=== PATIENT | male | born 1950 | race Caucasian/White ===

== ENCOUNTER 2025-01-11 06:55 | Outpatient (CLI) | payer MEDICARE, SELFPAY ==
[2025-01-11 07:45] LABS: Add Urine Microscopic? NO; Appearance Urine Clear (Clear); Glucose Urine UA Negative (Negative); Leukocyte Esterase Ur Negative LEU/UL (Negative); Nitrate Urine Negative (Negative); Specific Grav Ur 1.009 (1.001-1.035)
[2025-01-11 07:54] LABS: Alanine Aminotransferase 20 U/L (6-50); Albumin Level 4.2 g/dL (3.5-5.1); Alkaline Phosphatase 98 U/L (38-126); Anion Gap 7 mmol/L (4-12); Aspartate Amino Transferase 21 U/L (17-59); Bilirubin,Total 0.4 mg/dL (0.2-1.3); Blood Urea Nitrogen 18 mg/dL (9-20); Calcium 9.1 mg/dL (8.4-10.2); Carbon Dioxide 26 mmol/L (22-30); Chloride 105 mmol/L (98-107); Estimated Glomerular Filt Rate > 60; Glucose 121 mg/dL (65-110); Potassium 4.1 mmol/L (3.4-5.0); Sodium 138 mmol/L (137-145); Total Protein 7.4 g/dL (6.3-8.2)
[2025-01-11 08:36] LABS: Hematocrit 43.7 % (42.0-52.0); Hemoglobin 14.5 g/dL (14.0-18.0); Immature Granulocyte Percent A 0.3 % (0-0.5); Lymphocytes Absolute Auto 1.53 K/mm3 (0.9-3.2); Mean Corpuscular HGB Conc 33.2 g/dl (32-36); Mean Corpuscular Hemoglobin 31.9 pg (26-34); Mean Corpuscular Volume 96.0 fl (80-100); Nucleated Red Blood Cells Absolute Auto 0.000 K/mm3 (0.0-0.012); Nucleated Red Blood Cells Perc 0.0 % (0.0-0.2); Platelet Count Result 227 k/mm3 (150-375); Red Blood Count 4.55 M/mm3 (4.6-6.20); White Blood Count 7.6 K/mm3 (4.5-10.0)
== END 2025-01-11 06:56 | disposition home or self-care (01) ==
PROVIDERS: PCP Family Medicine; Visit Provider Nurse Practitioner
DX: F17.209 Nicotine dependence, unspecified, with unspecified nicotine-induced disorders (principal)
CPT/HCPCS: 36415; 80053; 81003; 85025

== ENCOUNTER 2025-02-11 21:01 | Inpatient (IN) | payer MEDICARE, SELFPAY ==
[2025-02-11] VITALS (26 sets, daily range): BP systolic 88–154; BP diastolic 53–84; PULSE 59–80; RESP 11–23; TEMP 36.7; O2SAT 95–100; BMI 22.2
--- NOTE | ~2025-02-11 | XR_ITS ---
XR chest 1V portable INDICATION:chest pain . REFERENCE: None FINDINGS: A single AP of the chest demonstrates normal heart size. Mild interstitial thickening present bilaterally. No focal consolidation. There is no evidence of pneumothorax or pleural effusion. IMPRESSION: Mild interstitial thickening bilaterally. Reviewed, dictated and finalized at location S. TTING MANAGER
--- NOTE | 2025-02-11 21:03 | ECG_ITS ---
Test Date: 2025-02-11 21:11:45 Measurements Intervals [place] Rate: 62 P: 56 MI: 157 QRS: 47 QRSD: 98 T: 107 QT: 389 QTc: 395 Interpretive Statements SINUS RHYTHM MARKED ST ELEVATION, CONSIDER INFERIOR INJURY [MARKED ST ELEVATION W/O NORMALLY INFLECTED T-WAVE IN II/aVF] ACUTE [place] No previous ECG available for comparison Electronically Signed On 02-11-2025 21:14:39 DIE OPERATOR by Leonardo Pino M.D.
[2025-02-11 21:19] LABS: Hematocrit 46.4 % (42.0-52.0); Hemoglobin 15.4 g/dL (14.0-18.0); Immature Granulocyte Percent A 0.3 % (0-0.5); Lymphocytes Absolute Auto 2.69 K/mm3 (0.9-3.2); Mean Corpuscular HGB Conc 33.2 g/dl (32-36); Mean Corpuscular Hemoglobin 31.7 pg (26-34); Mean Corpuscular Volume 95.5 fl (80-100); Nucleated Red Blood Cells Absolute Auto 0.000 K/mm3 (0.0-0.012); Nucleated Red Blood Cells Perc 0.0 % (0.0-0.2); Platelet Count Result 200 k/mm3 (150-375); Red Blood Count 4.86 M/mm3 (4.6-6.20); White Blood Count 9.6 K/mm3 (4.5-10.0)
--- NOTE | 2025-02-11 21:20 | ED.CHESTPAIN ---
HPI - Chest Pain General Chief Complaint: Chest Pain Stated Complaint: chest pain Time Seen by Provider: 02/11/25 21:15 Source: patient and family Mode of arrival: ambulatory Limitations: no limitations History of Present Illness HPI narrative: patient presents with report of midsternal chest pain beginning this afternoon. He denies any shortness of breath. He did nausea. He states this has never happened before. No history of myocardial infarction stents. Does not see a circulating nurse. pain is nonradiating. Cardiac risk factors HTN: No HLD: no DM: no Obese: no Smoker: yes, 1 PPD Personal history VA/TIA/CVA: No Fam Hx VA in first degree relative <65yo: No Related Data Allergies Allergy/AdvReac Type Severity Reaction Status Date / Time No Known Allergies Allergy Verified 02/11/25 23:36 [facility] Surgical History Surgical History (Updated 02/11/25 @ 22:11 by Padmini Verdin MD) History of appendectomy Social History Social History Smoking packs per day: 1 Smoking cigarettes per day: 20.0 Years smoked: 60 Smoking pack-years: 60.00 Smoking status: Current every day smoker Tobacco type: cigarettes Alcohol intake: never Substance use: never Lack of Transportation: No Lack of Food: Never True Current Housing: I Have Housing Concerned About Future Housing: No Difficulty Paying Gas/Electric Bills: No Difficulty Paying for Meds: No Currently Unemployed: No Education: High School Diploma/GED Difficulty w/ Childcare or Family Care: No Spiritual care concerns: No Exam Narrative: GENERAL: Well-appearing, well-nourished, and in no acute distress. HEAD: Normocephalic, atraumatic. EYES: Non injected, non icteric ENT: Nares clear, no rhinorrhea or epistaxis. Gross auditory acuity intact. NECK: Supple. No meningismus. CHEST: Speaking in full sentences. No respiratory distress. HEART: Regular rate and rhythm. . ABDOMEN: Soft, nondistended. No rigidity or guarding. Not peritoneal EXTREMITIES: Normal range of motion. No lower extremity edema. SKIN: Warm, dry, no rash. NEURO: No focal deficits. Alert and oriented. Answering questions. Following commands. Normal speech without aphasia or dysarthria. PSYCH: Normal mood and affect. Course Vital Signs Vital signs: Vital Signs Pulse Rate 66 02/11/25 21:08 Respiratory Rate 18 02/11/25 21:08 Blood Pressure 148/74 H 02/11/25 21:08 Pulse Oximetry 98 02/11/25 21:08 Temperature 98.3 F 02/12/25 16:00 Pulse Rate 61 02/12/25 16:00 Respiratory Rate 23 H 02/12/25 16:00 Blood Pressure 120/65 02/12/25 16:00 Pulse Oximetry 97 02/12/25 16:00 Oxygen Delivery Room Air 02/12/25 04:00 Fraction of Inspired Oxygen 21 02/12/25 01:19 MDM - Chest Pain MDM Narrative Medical decision making narrative: Patient presents with midsternal Nonradiating chest pain that started this afternoon associated with nausea. Given the appearance of the EKG, I did activate STEMI and discuss immediately with on-call traffic technician Dr. Verdin who concurs with activation. To be given aspirin and heparin and taken to the cardiac catheterization lab. In the ED he is afebrile with VS notable for mild hypertension initially. HEART SCORE History 2 highly suspicious 1 moderately suspicious 0 slightly suspicious History score [address] depression/elevation not due to LBBB, LVH, or digoxin [address] depression but LBBB, LVH, nonspecific repolarization changes 0 normal ECG score 2 Age 2 >/= 65 1 45-64 0 <45 Age score 2 Risk factors (HTN, hypercholesterolemia, DM, obesity with BMI >30, current smoker or cessation </=3mo), positive fam hx with parent or sibling with CVD before age 65, atherosclerotic disease (prior VA, PCI/CABG, CVA/TIA, or peripheral arterial disease) 2 >/= 3 risk factors or history of atherosclerotic dz 1 - 1-2 risk factors 0 no known risk factors Risk factor score 1 (smoking) Initial Troponin 2 >3 times normal limit 1 1-3 times normal limit 0 less than or equal to normal limit Troponin score 2 Total HEART Score 8 Patient had briefly become hypotensive and received IV fluids with improvement. Patient was informed his troponin did result nearly 100x the upper limit of normal. He is reporting that because his is insisting he will take an ambulance home. I re-iterated again that he is having a heart attack and the course and that we do not provide EMS transportation directly home in these circumstances. He has an ALAINA, already receiving fluids. HA1c and lipid panel ordered. HA1c >6%, consistent with a new diagnosis of prediabetes. Taken to the fish hatchery laborer. == Critical Care: 1 or more vital organ systems impaired with a high probability of imminent or life-threatening deterioration in the patient's condition requiring frequent personal assessment and manipulation of the patient's condition. This included time spent evaluating the patient, speaking with EMS pre-hospital personnel and family, reviewing/interpreting laboratory/imaging studies, discussing the case with consultants or admitting teams, retrieving data and reviewing charts, monitoring for decompensation, documenting the visit, and performing bundled procedures exclusive of separately billed procedures. Lab Data Attestation: I reviewed the patient's lab results. Lab results narrative: CBC with mild abnormalities on the differential but otherwise without leukocytosis anemia thrombocytopenia. 02/12/25 03:11 02/12/25 03:11 Labs: Lab Results 02/11/25 02/11/25 Range/Units 21:11 21:12 WBC 9.6 (4.5-10.0) K/mm3 RBC 4.86 (4.6-6.20) M/mm3 Hgb 15.4 (14.0-18.0) g/dL Hct 46.4 (42.0-52.0) % MCV 95.5 (80-100) fl MCH 31.7 (26-34) pg MCHC 33.2 (32-36) g/dl RDW 14.5 (11.5-14.5) % Plt Count 200 (150-375) k/mm3 MPV 9.5 (7.4-10.4) fl Immature Gran % (Auto) 0.3 (0-0.5) % Neut % (Auto) 58.9 (45.5-73.1) % Lymph % (Auto) 28.0 (18.3-44.2) % [place] % (Auto) 10.2 H (2.6-8.5) % Eos % (Auto) 2.0 (0-4.4) % Baso % (Auto) 0.6 (0.2-1.2) % Lymph # (Auto) 2.69 (0.9-3.2) K/mm3 [place] # (Auto) 1.0 H (0.1-0.6) K/mm3 Eos # (Auto) 0.2 (0-0.3) K/mm3 Baso # (Auto) 0.1 (0.0-0.1) K/mm3 Abs Immat Gran (auto) 0.03 (0.00-0.031) K/mm3 Absolute Neuts (auto) 5.7 (1.3-6.7) K/mm3 Absolute Nucleated RBC 0.000 (0.0-0.012) K/mm3 Nucleated RBC % 0.0 (0.0-0.2) % PT 12.7 (11.1-14.7) Seconds INR 1.0 APTT 27.8 (22.3-36.8) Seconds Sodium 136 L (137-145) mmol/L Potassium 3.6 (3.4-5.0) mmol/L Chloride 102 (98-107) mmol/L Carbon Dioxide 25 (22-30) mmol/L Anion Gap 9 (4-12) mmol/L BUN 21 H (9-20) mg/dL Creatinine 1.43 H (0.7-1.3) mg/dL Estim Creat Clear Calc 37 ml/min Estimated GFR 48 L (59 - ) Glucose 129 H (65-110) mg/dL Hemoglobin A1c 6.1 H (<5.7) % Calcium 9.1 (8.4-10.2) mg/dL Total Bilirubin 0.5 (0.2-1.3) mg/dL AST 56 (17-59) U/L ALT 33 (6-50) U/L Alkaline Phosphatase 93 (38-126) U/L Troponin I 3.330 H* (0.000-0.034) ng/mL Total Protein 8.0 (6.3-8.2) g/dL Albumin 4.7 (3.5-5.1) g/dL Triglycerides 171 H (<150) mg/dL Cholesterol 218 H (0-200) mg/dL LDL Cholesterol Direct 119 mg/dL HDL Direct 48 mg/dL Lipase 46 (23-300) U/L ECG Data EKG #1: Attestation: I personally reviewed and interpreted this ECG as follows: ECG completion date: 02/11/25 ECG completion time: 21:11 Prior ECG tracings: not available for review (No prior for comparison) Interpretation: Patient has marked elevation in inferior leads 2 3 and AVF as well as ST depression in V2 with elevation in V3 and V4 as well. Ventricular rate 62 beats per minute. [place] interval 157. QRS 98. QT/QTC 389/394. Good R-wave progression across the precordial leads. No T-wave inversion. Critical Care Time Critical Care Time Critical Care Time: Yes Total Critical Care Time: 35 Discharge Plan Discharge Clinical Impression: ST elevation (STEMI) myocardial infarction, Chest pain, ALAINA (acute kidney injury), Pre-diabetes Patient Disposition: Still a Patient Condition: Serious Time of Disposition: 22:06
[2025-02-11] MEDS: ASPIRIN 81 MG CHEWABLE TABLET 324 MG PO (21:22)
[2025-02-11 21:29] LABS: INR 1.0; Prothrombin Time 12.7 Seconds (11.1-14.7)
[2025-02-11 21:30] LABS: Partial Thromboplastin Time 27.8 Seconds (22.3-36.8)
[2025-02-11] MEDS: HEPARIN SOD/D5W 100 UNITS/ML 25,000 UNITS/250 ML BAG 9 UNITS IV CONT (21:30)
[2025-02-11 21:33] LABS: Alanine Aminotransferase 33 U/L (6-50); Albumin Level 4.7 g/dL (3.5-5.1); Alkaline Phosphatase 93 U/L (38-126); Anion Gap 9 mmol/L (4-12); Aspartate Amino Transferase 56 U/L (17-59); Bilirubin,Total 0.5 mg/dL (0.2-1.3); Blood Urea Nitrogen 21 mg/dL (9-20); Calcium 9.1 mg/dL (8.4-10.2); Carbon Dioxide 25 mmol/L (22-30); Chloride 102 mmol/L (98-107); Estimated CRCL calculation 37 ml/min; Estimated Glomerular Filt Rate 48; Glucose 129 mg/dL (65-110); Lipase 46 U/L (23-300); Potassium 3.6 mmol/L (3.4-5.0); Sodium 136 mmol/L (137-145); Total Protein 8.0 g/dL (6.3-8.2)
[2025-02-11] MEDS: LACTATED RINGERS 1,000 ML 999 ML IV CONT (21:37)
[2025-02-11 21:47] LABS: INR 1.1; Prothrombin Time 14.3 Seconds (11.1-14.7)
[2025-02-11 21:48] LABS: Troponin I 3.330 ng/mL (0.000-0.034)
[2025-02-11 22:01] LABS: Partial Thromboplastin Time > 200.0 Seconds (22.3-36.8)
--- NOTE | 2025-02-11 22:04 | WPDCARDPROC ---
Cardiac Cath Procedure Note Date of procedure:: 02/11/25 Performing physician:: Padmini Verdin MD Date of service 02/11/2025- Indication:: Inferior STEMI Brief clinical history:: 75-year-old patient who is a smoker and started having chest pain today. EKG shows inferior ST elevation. Admits central chest pain associated shortness of breath. Procedure Procedure performed:: 1-Moderate sedation that started at 10:19 p.m. and ended at 11:01 p.m. for total duration 40 minutes using 3mg of Versed and 75mcg fentanyl. The registered nurse was jackie romo 2-Selective left and right coronary angiogram. 3-Left heart catheterization with measurement of LVEDP and measurement of gradient across aortic valve. 4-Right common femoral arterial angiogram. 5-intravascular ultrasound of the right coronary artery. 6-Deployment of drug-eluting stent roz covering proximal and midportion of RCA. Sedation/Medication given:: Moderate sedation. Access site:: Right common femoral artery. Estimated blood loss:: 10cc Procedure note:: After informed consent patient was brought in to landscape and yardwork laborer with the was draped and prepped in usual manner. Moderate sedation was given and the right groin was infiltrated using 1% lidocaine. six [place] sheath was obtained using micropuncture needle and the modified Seldinger technique. Selective right coronary angiogram was done using JR4 guide catheter with the tip of the catheter placed to the right coronary artery. After that coronary lead wire was advanced to distal RCA and balloon angioplasty was done using 2.5 x 15 balloon with 2 inflations. First inflation under nominal pressure for 15 seconds and the 2nd inflation corresponding size 3 mm for 15 seconds. Intravascular ultrasound was used and determine the diameter of RCA about 4 mm. Then deployed a drug-eluting stent roz 4 x 22 covering proximal midportion RCA and a normal pressure for 25 seconds. Selective left coronary angiogram was done using JL4 catheter with the tip of the catheter placed in the left main coronary artery. After that 5 [place] pigtail catheter was advanced across the aortic valve into the left ventricle with measurement of LVEDP and measurement of gradient across aortic valve. LV angiogram was done. Right common femoral arterial angiogram was done. Findings:: 1- left coronary artery is a large artery that divides into large LAD, large circumflex artery. Left main is free of disease. 2- left anterior descending artery is a large artery that runs and wraps around the apex. In the mid segment calcification and 20% lesion. 3- leftcircumflex artery is a large artery. Proximally 20% lesion. Large OM1 without significant disease. 4- right coronary artery is totally occluded at the junction of the proximal and mid segment with ESTEE flow 0. 5- LVEDP was 21 mm Hg and no gradient across aortic valve. 6-LV angiogram shows ejection fraction 60% with inferior wall hypokinesis. 6- opening arterial pressure was 152/85 and closing pressure was 124/85 7- right femoral artery angiogram shows no significant disease in the right common femoral artery. 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 Assessment and Plan Assessment and plan (1) ST elevation (STEMI) myocardial infarction: Code(s): I21.3 - ST elevation (STEMI) myocardial infarction of unspecified site Status: Acute Plan -continue aspirin and Brilinta -tobacco cessation -check lipid panel and screening for diabetes -echo
--- NOTE | 2025-02-11 22:05 | P.SEDATION_ITS ---
Moderate Sedation Note-Pt Data Patient Data Diagnosis: Inferior STEMI Present Complaint: Chest pain Procedure to be performed/Plan: Coronary angiogram Allergies Allergy/AdvReac Type Severity Reaction Status Date / Time No Known Allergies Allergy Verified 02/11/25 21:21 Current Medications: Active Medications Heparin Sodium (Porcine) (Heparin Sodium 5,000 Units/Ml Vial) 4,000 units IV PUSH PRN PRN PRN Reason: aPTT less than 55 seconds Heparin Sodium (Porcine) (Heparin Sodium 5,000 Units/Ml Vial) 3,000 units IV PUSH PRN PRN PRN Reason: aPTT 55 - 70 seconds Heparin Sodium/Dextrose (Heparin Sodium/D5w 100 Units/Ml) 25,000 units in 250 mls @ 9 mls/hr IV CONT .Q24H SNEHA; Protocol Last Admin: 02/11/25 21:30 Dose: 900 units/hr, 9 mls/hr Lactated Ringer's (Lr - Lactated Ringers Iv) 1,000 mls @ 999 mls/hr IV CONT .Q1H1M STA Stop: 02/11/25 22:36 Last Admin: 02/11/25 21:37 Dose: 999 mls/hr Sedation/Anesthesia: No previous sedation/anesthesia problems (including family history). Mod Sed Physical Exam Physical Exam Pre Procedural Exam: Normal: Appearance, Eyes, Ears, Nose, Neck, Throat, Airway, Lungs, Heart Size, Heart Rate, Heart Rhythm, Neuro Exam, Abdomen, Liver, Kidneys, Spleen, Breasts, Genitalia, Extremities and Skin Hours since solid foods: 8 Hours since liquid intake: 8 Mallampati Classification: class 1 Internal Medicine - PN: Obj Da Vital Signs Vital Signs: Vital Signs - 24 hr 02/11/25 21:08 02/11/25 21:14 02/11/25 21:15 Temperature 36.7 C Pulse Rate 66 68 69 Respiratory Rate 18 23 H 19 Blood Pressure 148/74 H 139/77 139/77 Pulse Oximetry 98 97 97 Oxygen Delivery Room Air 02/11/25 21:25 02/11/25 21:30 02/11/25 21:31 Temperature Pulse Rate 59 L 59 L Respiratory Rate 16 21 H Blood Pressure 88/53 L 89/62 L Pulse Oximetry 97 98 98 Oxygen Delivery Room Air 02/11/25 21:34 02/11/25 21:36 02/11/25 21:38 Temperature Pulse Rate 66 63 62 Respiratory Rate 17 17 20 Blood Pressure 103/62 111/70 125/69 Pulse Oximetry 99 99 98 Oxygen Delivery 02/11/25 21:38 02/11/25 21:39 02/11/25 21:41 Temperature Pulse Rate 61 67 66 Respiratory Rate 21 H 22 H 19 Blood Pressure 125/69 131/76 Pulse Oximetry 100 98 98 Oxygen Delivery 02/11/25 21:43 02/11/25 21:45 02/11/25 21:47 Temperature Pulse Rate 71 76 68 Respiratory Rate 15 18 11 L Blood Pressure 120/82 136/81 131/84 Pulse Oximetry 97 97 98 Oxygen Delivery 02/11/25 21:49 02/11/25 21:51 02/11/25 21:52 Temperature Pulse Rate 78 72 70 Respiratory Rate 14 20 22 H Blood Pressure 143/78 H 141/81 H Pulse Oximetry 99 99 98 Oxygen Delivery 02/11/25 21:53 02/11/25 21:55 02/11/25 21:57 Temperature Pulse Rate 67 76 70 Respiratory Rate 19 21 H 21 H Blood Pressure 137/81 153/81 H 154/72 H Pulse Oximetry 99 99 100 Oxygen Delivery 02/11/25 21:59 02/11/25 22:00 02/11/25 22:01 Temperature Pulse Rate 74 68 70 Respiratory Rate 16 18 19 Blood Pressure 149/75 H 150/79 H Pulse Oximetry 98 97 100 Oxygen Delivery Meds/Results Medications: Active Medications Generic Name Dose Route Start Last Admin Trade Name Freq PRN Reason Stop Dose Admin Heparin Sodium (Porcine) 4,000 units 02/11/25 21:17 Heparin Sodium 5,000 Units/Ml Vial IV PUSH PRN PRN aPTT less than 55 seconds Heparin Sodium (Porcine) 3,000 units 02/11/25 21:17 Heparin Sodium 5,000 Units/Ml Vial IV PUSH PRN PRN aPTT 55 - 70 seconds Heparin Sodium/Dextrose 25,000 units in 250 mls @ 9 mls/hr 02/11/25 21:20 02/11/25 21:30 Heparin Sodium/D5w 100 Units/Ml IV CONT 900 units/hr .Q24H SNEHA 9 mls/hr Protocol Administration 900 UNITS/HR Lactated Ringer's 1,000 mls @ 999 mls/hr 02/11/25 21:36 02/11/25 21:37 Lr - Lactated Ringers Iv IV CONT 02/11/25 22:36 999 mls/hr .Q1H1M STA Administration Radiology Results: ITS Impressions Chest X-Ray 02/11/25 21:41 IMPRESSION: Mild interstitial thickening bilaterally. Labs 02/11/25 21:12 02/11/25 21:12 Labs: Laboratory Results - last 24 hr 02/11/25 02/11/25 21:12 21:31 WBC 9.6 RBC 4.86 Hgb 15.4 Hct 46.4 MCV 95.5 MCH 31.7 MCHC 33.2 RDW 14.5 Plt Count 200 MPV 9.5 Immature Gran % (Auto) 0.3 Neut % (Auto) 58.9 Lymph % (Auto) 28.0 [place] % (Auto) 10.2 H Eos % (Auto) 2.0 Baso % (Auto) 0.6 Lymph # (Auto) 2.69 [place] # (Auto) 1.0 H Eos # (Auto) 0.2 Baso # (Auto) 0.1 Abs Immat Gran (auto) 0.03 Absolute Neuts (auto) 5.7 Absolute Nucleated RBC 0.000 Nucleated RBC % 0.0 PT 12.7 14.3 INR 1.0 1.1 APTT 27.8 > 200.0 H* Sodium 136 L Potassium 3.6 Chloride 102 Carbon Dioxide 25 Anion Gap 9 BUN 21 H Creatinine 1.43 H Estim Creat Clear Calc 37 Estimated GFR 48 L Glucose 129 H Calcium 9.1 Total Bilirubin 0.5 AST 56 ALT 33 Alkaline Phosphatase 93 Troponin I 3.330 H* Total Protein 8.0 Albumin 4.7 Lipase 46 ASA Classification/Sedation ASA Classification/Sedation ASA Class: I Emergent: No Risks: Risks, benefits and alternatives explained and patient/family accepted plan for sedation. Patient re-evaluated immediately prior to sedation.
--- NOTE | 2025-02-11 22:05 | WPDHPUPDATE1 ---
History and Physical Update Update Date/Time: 02/11/25 22:05 History and Physical has been reviewed, including an updated exam of the patient. There are NO changes in the patient's condition. Risks, benefits, and alternatives have been discussed and questions answered. Patient agrees to proceed with procedure.
--- NOTE | 2025-02-11 22:06 | P.HP_ITS ---
H&P: HPI History of Present Illness Date/Time: Date of service 02/11/25 22:06 Chief Complaint: Chest pain Narrative: 75-year-old patient who is a smoker and started having chest pain today in the afternoon. Described as central chest pressure excessive shortness of breath. EKG shows inferior ST elevation. Past medical history: None Past surgical history: Appendectomy Family history: Denies CAD Social history: Active tobacco use. Denies alcohol Review of Systems Review of Systems: All systems reviewed & are unremarkable except as noted in HPI and below Constitutional: Constitutional: Reports fatigue Eyes: Eyes: Denies blurry vision ENT: Denies ear discharge Cardiovascular: Cardiovascular: Reports chest pain at rest and Reports chest pain with activity Respiratory: Respiratory: Reports dyspnea on exertion Gastrointestinal: Gastrointestinal: Denies change in stool character Genitourinary: Genitourinary: Denies oliguria Musculoskeletal: Musculoskeletal: Denies arthralgias Integumentary/Breasts: Skin/Breast: Denies swelling and Denies pruritus Neurologic: Denies Abnormal speech present Endocrine: Endocrine: Denies cold intolerance Hematologic/Lymphatic: Hematologic/Lymphatic: Denies easy bruising Allergic/Immunologic: Allergic/Immunologic: Denies lip swelling PMFSH Surgical History Surgical History (Updated 02/11/25 @ 22:11 by Padmini Verdin MD) History of appendectomy Comments He is smoker. Does not drink alcohol Meds Home Medications and Allergies Allergies Allergy/AdvReac Type Severity Reaction Status Date / Time No Known Allergies Allergy Verified 02/11/25 21:21 Vital Signs Vital Signs - 24 hr 02/11/25 21:08 02/11/25 21:14 02/11/25 21:15 Temperature 36.7 C Pulse Rate 66 68 69 Respiratory Rate 18 23 H 19 Blood Pressure 148/74 H 139/77 139/77 Pulse Oximetry 98 97 97 Oxygen Delivery Room Air 02/11/25 21:25 02/11/25 21:30 02/11/25 21:31 Temperature Pulse Rate 59 L 59 L Respiratory Rate 16 21 H Blood Pressure 88/53 L 89/62 L Pulse Oximetry 97 98 98 Oxygen Delivery Room Air 02/11/25 21:34 02/11/25 21:36 02/11/25 21:38 Temperature Pulse Rate 66 63 62 Respiratory Rate 17 17 20 Blood Pressure 103/62 111/70 125/69 Pulse Oximetry 99 99 98 Oxygen Delivery 02/11/25 21:38 02/11/25 21:39 02/11/25 21:41 Temperature Pulse Rate 61 67 66 Respiratory Rate 21 H 22 H 19 Blood Pressure 125/69 131/76 Pulse Oximetry 100 98 98 Oxygen Delivery 02/11/25 21:43 02/11/25 21:45 02/11/25 21:47 Temperature Pulse Rate 71 76 68 Respiratory Rate 15 18 11 L Blood Pressure 120/82 136/81 131/84 Pulse Oximetry 97 97 98 Oxygen Delivery 02/11/25 21:49 02/11/25 21:51 02/11/25 21:52 Temperature Pulse Rate 78 72 70 Respiratory Rate 14 20 22 H Blood Pressure 143/78 H 141/81 H Pulse Oximetry 99 99 98 Oxygen Delivery 02/11/25 21:53 02/11/25 21:55 02/11/25 21:57 Temperature Pulse Rate 67 76 70 Respiratory Rate 19 21 H 21 H Blood Pressure 137/81 153/81 H 154/72 H Pulse Oximetry 99 99 100 Oxygen Delivery 02/11/25 21:59 02/11/25 22:00 02/11/25 22:01 Temperature Pulse Rate 74 68 70 Respiratory Rate 16 18 19 Blood Pressure 149/75 H 150/79 H Pulse Oximetry 98 97 100 Oxygen Delivery Exam Const: General: comfortable Nutritional Appearance: well nourished Orientation/consciousness: patient oriented x3 HENMT: Head: normal to inspection, normocephalic and atraumatic Ears: he aring grossly normal bilaterally and external ears normal Face/Nose/Sinus: Normal external nose present, Normal nares present, normal facial exam and No erythema Face and sinus: normal facial exam and no erythema Mouth: Yes moist mucous membranes and No lip abnormal Throat: uvula midline Eyes: General: appearance normal, both eyes and all related structures Eyelids: eyelids normal Sclera: sclerae normal Neck: Neck: normal visual inspection and full ROM Thyroid: thyroid normal Carotids: no bruits Lymphatic: lymphedema not noted Chest: Chest palpation & inspection: normal inspection of the chest and normal palpation of entire chest wall Resp: Effort & Inspection: normal respiratory effort and not labored Auscultation: clear to auscultation bilaterally, no crackles, no rales and no wheezes Cardio: Jugular venous distension: no JVD Rate: regular rate Rhythm: regular rhythm Heart sounds: S1 normal heart sound present, S2 normal heart sound present, no click, no gallops, no murmurs and no rubs Bruits: no carotid bruits GI: Inspection: normal to inspection and non-distended GI Palp: No abdominal tenderness Auscultation: normal bowel sounds Rectal Exam: deferred : General: No CVA tenderness and Yes no CVA tenderness Back/Spine/Pelvis: Back: no CVA tenderness, No CVA tenderness and No erythema Cervical Spine: cervical ROM normal Skin: General skin exam: normal color, no erythema and no pallor Lesions: no lesions Rashes: no rashes Neuro: General: patient oriented x3 and moves all extremities Cranial nerves: Yes facial symmetry Speech: normal speech Motor exam (neuro): 5/5 motor strength present throughout Extrem: General: normal to inspection and full ROM Psych: Appearance: grossly normal, well kempt and disheveled Affect: normal affect H&P: Results Labs Labs: Short CBC 02/11/25 Range/Units 21:12 WBC 9.6 (4.5-10.0) K/mm3 Hgb 15.4 (14.0-18.0) g/dL Hct 46.4 (42.0-52.0) % Plt Count 200 (150-375) k/mm3 BMP 02/11/25 21:12 Sodium 136 L Potassium 3.6 Chloride 102 Carbon Dioxide 25 BUN 21 H Creatinine 1.43 H Glucose 129 H Calcium 9.1 Cardiac Enzymes 02/11/25 Range/Units 21:12 Troponin I 3.330 H* (0.000-0.034) ng/mL Liver Function 02/11/25 Range/Units 21:12 Total Bilirubin 0.5 (0.2-1.3) mg/dL AST 56 (17-59) U/L ALT 33 (6-50) U/L Alkaline Phosphatase 93 (38-126) U/L Albumin 4.7 (3.5-5.1) g/dL Assessment and Plan Assessment and plan (1) ST elevation (STEMI) myocardial infarction: Code(s): I21.3 - ST elevation (STEMI) myocardial infarction of unspecified site Status: Acute Assessment and Plan: Inferior ST elevation. Risk factors tobacco use. Troponins elevated at 3.3. Risks and benefits of cardiac catheterization discussed with patient agrees to proceed. We will proceed in emergency fashion.
[2025-02-11 22:15] LABS: Cholesterol 218 mg/dL (0-200); HDL Direct 48 mg/dL; Triglycerides 171 mg/dL (<150)
[2025-02-11 22:17] LABS: Hemoglobin A1C 6.1 % (<5.7)
[2025-02-11 22:50] LABS: MRSA (PCR) NOT DETECTED (NOT DETECTE)
--- NOTE | 2025-02-11 23:27 | ECG_ITS ---
Test Date: 2025-02-11 23:51:38 Measurements Intervals [place] Rate: 69 P: 51 [place]: 155 QRS: 24 QRSD: 91 T: -34 QT: 402 QTc: 431 Interpretive Statements SINUS RHYTHM LEFT VENTRICULAR HYPERTROPHY AND ST-T CHANGE [VOLTAGE CRITERIA PLUS ST/T ABNORMALITY] MARKED ST ELEVATION, CONSIDER INFERIOR INJURY [MARKED ST ELEVATION W/O NORMALLY INFLECTED T WAVE IN II/aVF] ACUTE CO Compared to ECG 02/11/2025 21:11:45 Left ventricular hypertrophy now present ST (T wave) deviation still present Myocardial infarct finding still present Electronically Signed On 02-12-2025 06:58:42 [employer]OC[employer]ATE DEAN by Padmini Verdin M.D.
--- NOTE | 2025-02-11 23:35 | ADMGEN ---
This patient, Stone Evans, was admitted to Intensive Care Unit-4. Patient/family oriented to hospital policies and general routines including ID bracelet, bed and alarms, visiting hours, pain management, procedures, bathroom and other care routines, personal items, smoking policy, room service/diet, and visiting hours. Information on how to activate the Rapid Response Team has been discussed. Patient/Family are encouraged to report perceived risks to care and to ask questions if they do not understand what they are told or what they should do.
[2025-02-12] VITALS (37 sets, daily range): BP systolic 82–142; BP diastolic 53–113; PULSE 58–83; RESP 14–24; TEMP 36.5–36.9; O2SAT 95–100
--- NOTE | 2025-02-12 | ECHO_ITS ---
Patient Info Name: Stone Evans Age: 75 years : 1950 Gender: Male Ht: 67 in Wt: 142 lbs BSA: 1.75 m2 HR: 54 bpm BP: 129 / 61 mmHg Technical Quality: Good Exam Date: 02/12/2025 9:14 AM Patient Status: I Admit Date: 02/11/2025 Exam Type: CA echo doppler color flow Complete two-dimensional, color flow and Doppler transthoracic echocardiogram is performed. Staff Referring Physician: Luci Walter Instrument Operator: Maria E Han Attending Provider: Padmini Verdin MD Summary 1. Complete two-dimensional, color flow and Doppler transthoracic echocardiogram is performed. 2. The left ventricle is normal in size and systolic function. There is concentric left ventricular remodeling. The left ventricular ejection fraction is visually estimated to be 55-60%. The basal inferolateral and basal inferior wall are mildly hypokinetic. 3. The right ventricle is normal in size and systolic function. 4. There are no significant valvular abnormalities. Left Ventricle The left ventricle is normal in size and systolic function. There is concentric left ventricular remodeling. The left ventricular ejection fraction is visually estimated to be 55-60%. The basal inferolateral and basal inferior wall are mildly hypokinetic. Right Ventricle The right ventricle is normal in size and systolic function. Left Atria The left atrium is normal size. Right Atria The right atrium is normal size. Atrial Septum The atrial septum is normal. Aortic Valve The aortic valve is trileaflet and opens well. There is no aortic regurgitation. Pulmonic Valve The pulmonic valve is normal. There is no pulmonic valve regurgitation. Mitral Valve The mitral valve is normal. There is no mitral regurgitation. Tricuspid Valve The tricuspid valve is normal. There is no tricuspid regurgitation. Pericardium/Pleural Pericardium is normal in appearance with no evidence for significant pericardial effusion. Inferior Vena Cava Dilated inferior vena cava with >50% collapse upon inspiration consistent with elevated right atrial pressure, 8 mmHg. Aorta The aortic root at the level of the sinus of Valsalva measures 3.3 cm in diameter. Left Ventricular Outflow Tract Name Value Normal LVOT 2D LVOT Diameter 2.0 cm LVOT Doppler LVOT Peak Velocity 99 cm/s LVOT Peak Gradient 4 mmHg LVOT Mean Gradient 2 mmHg LVOT VTI 22 cm LVOT Stroke Volume 65 ml LVOT CO 3.5 l/min LVOT CI 2.0 l/min/m2 Pulmonic Valve Name Value Normal RVOT Doppler RVOT Peak Velocity 57 cm/s RVOT Peak Gradient 1 mmHg PV Doppler PV Peak Velocity 88 cm/s PV Peak Gradient 3 mmHg Mitral Valve Name Value Normal MV Diastolic Function MV E Peak Velocity 65 cm/s MV A Peak Velocity 59 cm/s MV E/A 1.1 MV Decel Time (PW) 249 ms MV Annular TDI MV E/e' (Septal) 11.5 MV E/e' (Lateral) 9.1 MV E/e' (Average) 10.3 Tricuspid Valve Name Value Normal Estimated PAP/RSVP RA Pressure 8 mmHg <=5 Aortic Valve Name Value Normal AV Doppler AV Peak Velocity 136 cm/s AV Peak Gradient 7 mmHg AV Area (Cont Eq Nikhil) 2.2 cm2 AV DI (Nikhil) 0.72 AV Regurgitation 2D LVOT Area 3.0 cm2 Ventricles Name Value Normal LV Dimensions 2D/MM IVS Diastolic Thickness (2D) 1.0 cm 0.6-1.0 LVID Diastole (2D) 4.4 cm 4.2-5.8 LVIW Diastolic Thickness (2D) 1.1 cm 0.6-1.0 LVID Systole (2D) 3.1 cm 2.5-4.0 LVOT Diameter 2.0 cm LV Mass (2D Cubed) 158.20 g 88.00-224.00 LV Mass Index (2D Cubed) 91 g/m2 49-115 Relative Wall Thickness (2D) 0.49 <=0.42 LV Fractional Shortening/Ejection Fraction 2D/MM LV Fractional Shortening (2D) 29 % 25-43 LV EF (2D Teichholz) 56 % LV Diastolic Volume (4C MOD) 79 ml LV EF (4C MOD) 55 % LV Diastolic Volume (2C MOD) 97 ml LV EF (2C MOD) 59 % LV Diastolic Volume (BP MOD) 88 ml 62-150 LV Diastolic Volume Index (BP MOD) 50 ml/m2 34-74 LV Systolic Volume (BP MOD) 39 ml 21-61 LV Systolic Volume Index (BP MOD) 22 ml/m2 11-31 LV EF (BP MOD) 56 % 52-72 LV Diastolic Length (4C) 7.6 cm LV Systolic Length (4C) 6.6 cm LV Stroke Volume (4C MOD) 43 ml Atria Name Value Normal LA Dimensions LA Volume (4C A-L) 26 ml LA Volume (BP A-L) 41 ml RA Dimensions RA Systolic Major [place] Length (4C) 5.2 cm 2.1-2.7 RA Area (4C) 11.4 cm2 <=18.0 Report Signatures
[2025-02-12] MEDS: SODIUM CHLORIDE 0.9% IV 1,000 ML 100 ML IV CONT (00:01)
[2025-02-12 00:56] LABS: Troponin I 23.500 ng/mL (0.000-0.034)
[2025-02-12 03:22] LABS: Hematocrit 38.4 % (42.0-52.0); Hemoglobin 13.0 g/dL (14.0-18.0); Immature Granulocyte Percent A 0.4 % (0-0.5); Lymphocytes Absolute Auto 1.10 K/mm3 (0.9-3.2); Mean Corpuscular HGB Conc 33.9 g/dl (32-36); Mean Corpuscular Hemoglobin 32.6 pg (26-34); Mean Corpuscular Volume 96.2 fl (80-100); Nucleated Red Blood Cells Absolute Auto 0.000 K/mm3 (0.0-0.012); Nucleated Red Blood Cells Perc 0.0 % (0.0-0.2); Platelet Count Result 166 k/mm3 (150-375); Red Blood Count 3.99 M/mm3 (4.6-6.20); White Blood Count 7.9 K/mm3 (4.5-10.0)
[2025-02-12 03:30] LABS: Hemoglobin A1C 6.1 % (<5.7)
[2025-02-12 03:42] LABS: Anion Gap 3 mmol/L (4-12); Blood Urea Nitrogen 19 mg/dL (9-20); Calcium 8.3 mg/dL (8.4-10.2); Carbon Dioxide 24 mmol/L (22-30); Chloride 106 mmol/L (98-107); Cholesterol 179 mg/dL (0-200); Estimated CRCL calculation 43 ml/min; Estimated Glomerular Filt Rate 57; Glucose 143 mg/dL (65-110); HDL Direct 45 mg/dL; Potassium 4.6 mmol/L (3.4-5.0); Sodium 133 mmol/L (137-145); Triglycerides 85 mg/dL (<150)
[2025-02-12 03:50] LABS: Troponin I 53.300 ng/mL (0.000-0.034)
[2025-02-12] MEDS: ASPIRIN 81 MG ENTERIC TABLET PO (07:57)
[2025-02-12] MEDS: TICAGRELOR 90 MG TABLET PO ×2 (07:57→20:45)
--- NOTE | 2025-02-12 08:50 | WPDCNINT ---
Assessment and Plan Assessment and plan (1) ST elevation (STEMI) myocardial infarction: Code(s): I21.3 - ST elevation (STEMI) myocardial infarction of unspecified site Status: Acute Assessment and Plan: Patient presented with chest pain, EKG revealed in inferior ST-elevation myocardial injury, patient was taken to the cardiac blood bank laboratory technologist, status post PTCA/PCI with CHRIS x1 to proximal RCA, EF of 60% with inferior wall hypokinesis, LVEDP was 21 mmHg -cardiology following the patient -continue ticagrelor, aspirin, atorvastatin (2) ALAINA (acute kidney injury): Code(s): N17.9 - Acute kidney failure, unspecified Status: Acute Assessment and Plan: Acute kidney injury could be related to myocardial injury and/or hypovolemia -creatinine is improved and normalized will continue to monitor Plan DVT prophylaxis: Status post cardiac catheterization Stress ulcer prophylaxis: Not indicated Nutrition: Heart healthy diet Code Status: Full code Critical Care Time Spent: 44 minutes Due to a high probability of clinically significant, life threatening deterioration, the patient required my highest level of preparedness to intervene emergently and I personally spent this critical care time directly and personally managing the patient. This critical care time included obtaining a history; examining the patient; pulse oximetry; ordering and review of studies; arranging urgent treatment with development of a management plan; evaluation of patient's response to treatment; frequent reassessment; and discussions with other providers. It was exclusive of separately billable procedures and treating other patients and teaching time. Please see Assessment and Plan section and the rest of the note for further information on patient assessment and treatment This dictation may have been done utilizing a voice recognition system. Attempts have been made to correct errors. However, there may be uncorrected grammatical, spelling, and recognitions errors present. Automotive Glass Technician Consult Note Consult date: 02/12/25 Reason for consult: Chest pain, STEMI, status post PTCA/PCI with CHRIS x1 to proximal RCA, EF was 60% with inferior wall hypokinesis, LVEDP was 21 mmHg HPI: Stone Evans is a 75 year old male with past medical history of prediabetes, history of acute kidney injury presented the ED on 02/11/2025 with complains of chest pain that started complaining of chest pain that started in the afternoon of the day of admission, he also complained of shortness of breath and diaphoresis. As she was reluctant to come to the hospital but his forced him to go to the ER. EKG showed inferior ST elevation myocardial injury, elevated troponins, code STEMI was activated, patient was taken to cardiac blood bank laboratory technologist of we had 100% occlusion of proximal RCA status post PTCA/PCI with CHRIS x1 to proximal RCA. His EF was 60% with inferior wall hypokinesis, LVEDP was 21 mmHg. Patient was transferred to the ICU for further management Patient seen and examined the ICU this morning, S sitting up in chair, having breakfast, denies any shortness of breath, chest pain, diaphoresis, nausea, vomiting, abdominal pain. Hemodynamically stable. Requesting to go home. Urine output has been adequate, afebrile Review of Systems Review of Systems: All systems reviewed & are unremarkable except as noted in HPI and below [facility] Surgical History Surgical History (Updated 02/11/25 @ 22:11 by Padmini Verdin MD) History of appendectomy Social History Social History Smoking packs per day: 1 Smoking cigarettes per day: 20.0 Years smoked: 60 Smoking pack-years: 60.00 Smoking status: Current every day smoker Tobacco type: cigarettes Alcohol intake: never Substance use: never Lack of Transportation: No Lack of Food: Never True Current Housing: I Have Housing Concerned About Future Housing: No Difficulty Paying Gas/Electric Bills: No Difficulty Paying for Meds: No Currently Unemployed: No Education: High School Diploma/GED Difficulty w/ Childcare or Family Care: No Spiritual care concerns: No Meds Home Medications and Allergies Home Medications ?Medication ?Instructions ?Recorded ?Confirmed ?Type No Home Medications 02/11/25 02/11/25 History Allergies Allergy/AdvReac Type Severity Reaction Status Date / Time No Known Allergies Allergy Verified 02/11/25 23:36 Vital Signs Vital Signs - 24 hr 02/11/25 21:08 02/11/25 21:14 02/11/25 21:15 Temperature 98.0 F Pulse Rate 66 68 69 Respiratory Rate 18 23 H 19 Blood Pressure 148/74 H 139/77 139/77 Pulse Oximetry 98 97 97 Oxygen Delivery Room Air Fraction of Inspired Oxygen 02/11/25 21:25 02/11/25 21:30 02/11/25 21:31 Temperature Pulse Rate 59 L 59 L Respiratory Rate 16 21 H Blood Pressure 88/53 L 89/62 L Pulse Oximetry 97 98 98 Oxygen Delivery Room Air Fraction of Inspired Oxygen 02/11/25 21:34 02/11/25 21:36 02/11/25 21:38 Temperature Pulse Rate 66 63 62 Respiratory Rate 17 17 20 Blood Pressure 103/62 111/70 125/69 Pulse Oximetry 99 99 98 Oxygen Delivery Fraction of Inspired Oxygen 02/11/25 21:38 02/11/25 21:39 02/11/25 21:41 Temperature Pulse Rate 61 67 66 Respiratory Rate 21 H 22 H 19 Blood Pressure 125/69 131/76 Pulse Oximetry 100 98 98 Oxygen Delivery Fraction of Inspired Oxygen 02/11/25 21:43 02/11/25 21:45 02/11/25 21:47 Temperature Pulse Rate 71 76 68 Respiratory Rate 15 18 11 L Blood Pressure 120/82 136/81 131/84 Pulse Oximetry 97 97 98 Oxygen Delivery Fraction of Inspired Oxygen 02/11/25 21:49 02/11/25 21:51 02/11/25 21:52 Temperature Pulse Rate 78 72 70 Respiratory Rate 14 20 22 H Blood Pressure 143/78 H 141/81 H Pulse Oximetry 99 99 98 Oxygen Delivery Fraction of Inspired Oxygen 02/11/25 21:53 02/11/25 21:55 02/11/25 21:57 Temperature Pulse Rate 67 76 70 Respiratory Rate 19 21 H 21 H Blood Pressure 137/81 153/81 H 154/72 H Pulse Oximetry 99 99 100 Oxygen Delivery Fraction of Inspired Oxygen 02/11/25 21:59 02/11/25 22:00 02/11/25 22:01 Temperature Pulse Rate 74 68 70 Respiratory Rate 16 18 19 Blood Pressure 149/75 H 150/79 H Pulse Oximetry 98 97 100 Oxygen Delivery Fraction of Inspired Oxygen 02/11/25 23:27 02/11/25 23:42 02/11/25 23:57 Temperature Pulse Rate 80 77 71 Respiratory Rate 20 21 H 15 Blood Pressure 120/72 123/67 126/75 Pulse Oximetry 95 98 97 Oxygen Delivery Fraction of Inspired Oxygen 02/12/25 00:00 02/12/25 00:00 02/12/25 00:00 Temperature 98.1 F Pulse Rate 73 72 Respiratory Rate 18 Blood Pressure 126/75 Pulse Oximetry 97 Oxygen Delivery Room Air Fraction of Inspired Oxygen 02/12/25 00:12 02/12/25 00:42 02/12/25 01:00 Temperature Pulse Rate 69 66 64 Respiratory Rate 14 17 16 Blood Pressure 129/70 126/65 133/113 H Pulse Oximetry 98 98 98 Oxygen Delivery Fraction of Inspired Oxygen 02/12/25 01:19 02/12/25 01:25 02/12/25 01:25 Temperature Pulse Rate 68 63 62 Respiratory Rate 20 20 19 Blood Pressure 82/53 L 110/70 Pulse Oximetry 97 99 97 Oxygen Delivery Room Air Fraction of Inspired Oxygen 02/12/25 01:35 02/12/25 01:40 02/12/25 01:45 Temperature Pulse Rate 71 65 68 Respiratory Rate 19 19 24 H Blood Pressure 116/70 110/76 110/67 Pulse Oximetry 97 97 97 Oxygen Delivery Fraction of Inspired Oxygen 02/12/25 01:50 02/12/25 01:55 02/12/25 02:00 Temperature 98.3 F Pulse Rate 67 64 69 Respiratory Rate 22 H 17 21 H Blood Pressure 121/68 124/68 111/70 Pulse Oximetry 97 97 98 Oxygen Delivery Fraction of Inspired Oxygen 02/12/25 02:00 02/12/25 02:10 02/12/25 02:25 Temperature Pulse Rate 69 71 75 Respiratory Rate 16 18 Blood Pressure 91/78 L 105/77 Pulse Oximetry 97 97 Oxygen Delivery Fraction of Inspired Oxygen 02/12/25 02:40 02/12/25 02:55 02/12/25 03:00 Temperature Pulse Rate 79 58 L 62 Respiratory Rate 22 H 18 17 Blood Pressure 137/80 134/68 134/68 Pulse Oximetry 96 98 98 Oxygen Delivery Fraction of Inspired Oxygen 02/12/25 03:25 02/12/25 03:55 02/12/25 04:00 Temperature Pulse Rate 58 L 60 Respiratory Rate 17 18 Blood Pressure 139/69 120/75 Pulse Oximetry 97 97 Oxygen Delivery Room Air Fraction of Inspired Oxygen 02/12/25 04:00 02/12/25 04:00 02/12/25 04:00 Temperature 97.9 F Pulse Rate 74 62 62 Respiratory Rate 18 18 Blood Pressure 130/66 130/66 Pulse Oximetry 97 97 Oxygen Delivery Fraction of Inspired Oxygen 02/12/25 05:00 02/12/25 05:12 02/12/25 06:00 Temperature Pulse Rate 69 59 L 63 Respiratory Rate 22 H 18 Blood Pressure 123/70 131/62 Pulse Oximetry 95 96 Oxygen Delivery Fraction of Inspired Oxygen 02/12/25 06:00 02/12/25 06:01 02/12/25 07:00 Temperature 98.4 F Pulse Rate 63 63 58 L Respiratory Rate 19 19 15 Blood Pressure 131/68 131/68 129/61 Pulse Oximetry 96 96 98 Oxygen Delivery Fraction of Inspired Oxygen Exam Narrative: General: Pleasant gentleman in no acute distress HEENT:? Pupils equal and react, sclera is clear Neck:? Supple Respiratory:? Clear to auscultation bilaterally, no wheezing, adequate air entry Cardiac:? S1-S2 normal, regular rate and rhythm Abdomen:? Soft, nontender, nondistended, normoactive bowel sounds Extremities:? Right groin site with mild bruising and ecchymosis, no hematoma noted Neuro:? Patient is awake, alert, oriented, able to answer questions appropriately and follows simple commands in all extremities Skin:? No lesions noted Psych:? Normal mentation and affect Results Labs 02/12/25 03:11 02/12/25 03:11 Labs: Short CBC 02/11/25 02/12/25 Range/Units 21:12 03:11 WBC 9.6 7.9 (4.5-10.0) K/mm3 Hgb 15.4 13.0 L (14.0-18.0) g/dL Hct 46.4 38.4 L (42.0-52.0) % Plt Count 200 166 (150-375) k/mm3 BMP 02/11/25 02/12/25 21:12 03:11 Sodium 136 L 133 L Potassium 3.6 4.6 Chloride 102 106 Carbon Dioxide 25 24 BUN 21 H 19 Creatinine 1.43 H 1.24 Glucose 129 H 143 H Calcium 9.1 8.3 L Cardiac Enzymes 02/11/25 02/12/25 02/12/25 Range/Units 21:12 00:22 03:11 Troponin I 3.330 H* 23.500 H* D 53.300 H* D (0.000-0.034) ng/mL Liver Function 02/11/25 Range/Units 21:12 Total Bilirubin 0.5 (0.2-1.3) mg/dL AST 56 (17-59) U/L ALT 33 (6-50) U/L Alkaline Phosphatase 93 (38-126) U/L Albumin 4.7 (3.5-5.1) g/dL
--- NOTE | 2025-02-12 09:53 | PC.NURSE ---
Patient ambulated 1 lap around the ICU without any issues. Patient denies any chest pain or discomfort while walking.
--- NOTE | 2025-02-12 10:02 | PM.PNCARD ---
Progress Note: A&P Assessment and Plan (1) ST elevation (STEMI) myocardial infarction: Code(s): I21.3 - ST elevation (STEMI) myocardial infarction of unspecified site Status: Acute (2) Hyperlipidemia: Code(s): E78.5 - Hyperlipidemia, unspecified Status: Acute (3) Tobacco abuse: Code(s): Z72.0 - Tobacco use Status: Acute Plan 75-year-old smoker presented with chest pain found to have inferior STEMI Inferior STEMI -status post PCI to RCA -mild residual disease in the left system -continue aspirin 81 mg p.o. daily and Brilinta 90 mg p.o. b.i.d. -continue atorvastatin 80 mg every evening -obtain echocardiogram Hyperlipidemia -atorvastatin 80 mg every evening for goal LDL less than 70 Active tobacco abuse -tobacco cessation counseling provided for 3 minutes Subjective Date/time seen: 02/12/25 10:02 Interval history: Denies any chest discomfort shortness of breath. Overall feels well. No orthopnea. No lightheadedness. No groin pain. Review of Systems Cardiovascular: Cardiovascular: Reports as per HPI Respiratory: Respiratory: Reports as per HPI Exam Const: General: comfortable HENMT: Mouth: Yes moist mucous membranes Eyes: EOM: EOMs intact bilaterally Neck: Neck: no JVD Resp: Effort & Inspection: normal respiratory effort Auscultation: clear to auscultation bilaterally Cardio: Rate: regular rate Rhythm: regular rhythm Neuro: Speech: normal speech Extrem: General: normal to inspection Other: Right groin site without hematoma or thrill. Objective Data Vital Signs Vital Signs: Vital Signs - 24 hr 02/11/25 21:08 02/11/25 21:14 02/11/25 21:15 Temperature 36.7 C Pulse Rate 66 68 69 Respiratory Rate 18 23 H 19 Blood Pressure 148/74 H 139/77 139/77 Pulse Oximetry 98 97 97 Oxygen Delivery Room Air Fraction of Inspired Oxygen 02/11/25 21:25 02/11/25 21:30 02/11/25 21:31 Temperature Pulse Rate 59 L 59 L Respiratory Rate 16 21 H Blood Pressure 88/53 L 89/62 L Pulse Oximetry 97 98 98 Oxygen Delivery Room Air Fraction of Inspired Oxygen 02/11/25 21:34 02/11/25 21:36 02/11/25 21:38 Temperature Pulse Rate 66 63 62 Respiratory Rate 17 17 20 Blood Pressure 103/62 111/70 125/69 Pulse Oximetry 99 99 98 Oxygen Delivery Fraction of Inspired Oxygen 02/11/25 21:38 02/11/25 21:39 02/11/25 21:41 Temperature Pulse Rate 61 67 66 Respiratory Rate 21 H 22 H 19 Blood Pressure 125/69 131/76 Pulse Oximetry 100 98 98 Oxygen Delivery Fraction of Inspired Oxygen 02/11/25 21:43 02/11/25 21:45 02/11/25 21:47 Temperature Pulse Rate 71 76 68 Respiratory Rate 15 18 11 L Blood Pressure 120/82 136/81 131/84 Pulse Oximetry 97 97 98 Oxygen Delivery Fraction of Inspired Oxygen 02/11/25 21:49 02/11/25 21:51 02/11/25 21:52 Temperature Pulse Rate 78 72 70 Respiratory Rate 14 20 22 H Blood Pressure 143/78 H 141/81 H Pulse Oximetry 99 99 98 Oxygen Delivery Fraction of Inspired Oxygen 02/11/25 21:53 02/11/25 21:55 02/11/25 21:57 Temperature Pulse Rate 67 76 70 Respiratory Rate 19 21 H 21 H Blood Pressure 137/81 153/81 H 154/72 H Pulse Oximetry 99 99 100 Oxygen Delivery Fraction of Inspired Oxygen 02/11/25 21:59 02/11/25 22:00 02/11/25 22:01 Temperature Pulse Rate 74 68 70 Respiratory Rate 16 18 19 Blood Pressure 149/75 H 150/79 H Pulse Oximetry 98 97 100 Oxygen Delivery Fraction of Inspired Oxygen 02/11/25 23:27 02/11/25 23:42 02/11/25 23:57 Temperature Pulse Rate 80 77 71 Respiratory Rate 20 21 H 15 Blood Pressure 120/72 123/67 126/75 Pulse Oximetry 95 98 97 Oxygen Delivery Fraction of Inspired Oxygen 02/12/25 00:00 02/12/25 00:00 02/12/25 00:00 Temperature 36.7 C Pulse Rate 73 72 Respiratory Rate 18 Blood Pressure 126/75 Pulse Oximetry 97 Oxygen Delivery Room Air Fraction of Inspired Oxygen 02/12/25 00:12 02/12/25 00:42 02/12/25 01:00 Temperature Pulse Rate 69 66 64 Respiratory Rate 14 17 16 Blood Pressure 129/70 126/65 133/113 H Pulse Oximetry 98 98 98 Oxygen Delivery Fraction of Inspired Oxygen 02/12/25 01:19 02/12/25 01:25 02/12/25 01:25 Temperature Pulse Rate 68 63 62 Respiratory Rate 20 20 19 Blood Pressure 82/53 L 110/70 Pulse Oximetry 97 99 97 Oxygen Delivery Room Air Fraction of Inspired Oxygen 21 02/12/25 01:35 02/12/25 01:40 02/12/25 01:45 Temperature Pulse Rate 71 65 68 Respiratory Rate 19 19 24 H Blood Pressure 116/70 110/76 110/67 Pulse Oximetry 97 97 97 Oxygen Delivery Fraction of Inspired Oxygen 02/12/25 01:50 02/12/25 01:55 02/12/25 02:00 Temperature 36.8 C Pulse Rate 67 64 69 Respiratory Rate 22 H 17 21 H Blood Pressure 121/68 124/68 111/70 Pulse Oximetry 97 97 98 Oxygen Delivery Fraction of Inspired Oxygen 02/12/25 02:00 02/12/25 02:10 02/12/25 02:25 Temperature Pulse Rate 69 71 75 Respiratory Rate 16 18 Blood Pressure 91/78 L 105/77 Pulse Oximetry 97 97 Oxygen Delivery Fraction of Inspired Oxygen 02/12/25 02:40 02/12/25 02:55 02/12/25 03:00 Temperature Pulse Rate 79 58 L 62 Respiratory Rate 22 H 18 17 Blood Pressure 137/80 134/68 134/68 Pulse Oximetry 96 98 98 Oxygen Delivery Fraction of Inspired Oxygen 02/12/25 03:25 02/12/25 03:55 02/12/25 04:00 Temperature Pulse Rate 58 L 60 Respiratory Rate 17 18 Blood Pressure 139/69 120/75 Pulse Oximetry 97 97 Oxygen Delivery Room Air Fraction of Inspired Oxygen 02/12/25 04:00 02/12/25 04:00 02/12/25 04:00 Temperature 36.6 C Pulse Rate 74 62 62 Respiratory Rate 18 18 Blood Pressure 130/66 130/66 Pulse Oximetry 97 97 Oxygen Delivery Fraction of Inspired Oxygen 02/12/25 05:00 02/12/25 05:12 02/12/25 06:00 Temperature Pulse Rate 69 59 L 63 Respiratory Rate 22 H 18 Blood Pressure 123/70 131/62 Pulse Oximetry 95 96 Oxygen Delivery Fraction of Inspired Oxygen 02/12/25 06:00 02/12/25 06:01 02/12/25 07:00 Temperature 36.9 C Pulse Rate 63 63 58 L Respiratory Rate 19 19 15 Blood Pressure 131/68 131/68 129/61 Pulse Oximetry 96 96 98 Oxygen Delivery Fraction of Inspired Oxygen 02/12/25 08:00 02/12/25 08:00 02/12/25 09:00 Temperature 36.5 C Pulse Rate 79 83 61 Respiratory Rate 20 21 H Blood Pressure 142/68 H 128/75 Pulse Oximetry 98 99 Oxygen Delivery Fraction of Inspired Oxygen Intake/Output Intake/Output: Intake & Output 02/09/25 02/10/25 02/11/25 02/12/25 23:59 23:59 23:59 23:59 Intake Total 1060 Output Total 450 Balance 610 Meds/Results Medications: Active Medications Generic Name Dose Route Start Last Admin Trade Name Freq PRN Reason Stop Dose Admin Aspirin 81 mg 02/12/25 09:00 02/12/25 07:57 Aspirin 81 Mg Enteric Tablet PO 81 mg QAM SNEHA Administration Atorvastatin Calcium 80 mg 02/12/25 21:00 Atorvastatin 40 Mg Tablet PO QHS SNEHA Ondansetron HCl 4 mg 02/11/25 23:27 Ondansetron Hcl Odt 4 Mg Tablet PO 02/12/25 23:26 Q4-6H PRN Nausea Perflutren Lipid Microsphere 0 ml 02/12/25 08:20 Perflutren Lipid Microspheres 1.5 Ml Vial Diluted To 10 Ml Total Volume IV PUSH 02/15/25 08:20 ONCE PRN adequate visualization Protocol Ticagrelor 90 mg 02/12/25 09:00 02/12/25 07:57 Ticagrelor 90 Mg Tablet PO 90 mg Q12HR SNEHA Administration Radiology Results: ITS Impressions Chest X-Ray 02/11/25 21:41 IMPRESSION: Mild interstitial thickening bilaterally. Labs Labs: Laboratory Results - last 24 hr 02/11/25 02/11/25 02/11/25 21:11 21:12 21:31 WBC 9.6 RBC 4.86 Hgb 15.4 Hct 46.4 MCV 95.5 MCH 31.7 MCHC 33.2 RDW 14.5 Plt Count 200 MPV 9.5 Immature Gran % (Auto) 0.3 Neut % (Auto) 58.9 Lymph % (Auto) 28.0 Morris % (Auto) 10.2 H Eos % (Auto) 2.0 Baso % (Auto) 0.6 Lymph # (Auto) 2.69 Morris # (Auto) 1.0 H Eos # (Auto) 0.2 Baso # (Auto) 0.1 Abs Immat Gran (auto) 0.03 Absolute Neuts (auto) 5.7 Absolute Nucleated RBC 0.000 Nucleated RBC % 0.0 PT 12.7 14.3 INR 1.0 1.1 APTT 27.8 > 200.0 H* Sodium 136 L Potassium 3.6 Chloride 102 Carbon Dioxide 25 Anion Gap 9 BUN 21 H Creatinine 1.43 H Estim Creat Clear Calc 37 Estimated GFR 48 L Glucose 129 H Hemoglobin A1c 6.1 H Calcium 9.1 Total Bilirubin 0.5 AST 56 ALT 33 Alkaline Phosphatase 93 Troponin I 3.330 H* Total Protein 8.0 Albumin 4.7 Triglycerides 171 H Cholesterol 218 H LDL Cholesterol Direct 119 HDL Direct 48 Lipase 46 Nasal MRSA (PCR) Not detected 02/12/25 02/12/25 00:22 03:11 WBC 7.9 RBC 3.99 L Hgb 13.0 L Hct 38.4 L MCV 96.2 MCH 32.6 MCHC 33.9 RDW 14.6 H Plt Count 166 MPV 10.1 Immature Gran % (Auto) 0.4 Neut % (Auto) 77.8 H Lymph % (Auto) 14.0 L Morris % (Auto) 7.0 Eos % (Auto) 0.3 Baso % (Auto) 0.5 Lymph # (Auto) 1.10 Morris # (Auto) 0.6 Eos # (Auto) 0.0 Baso # (Auto) 0.0 Abs Immat Gran (auto) 0.03 Absolute Neuts (auto) 6.1 Absolute Nucleated RBC 0.000 Nucleated RBC % 0.0 PT INR APTT Sodium 133 L Potassium 4.6 Chloride 106 Carbon Dioxide 24 Anion Gap 3 L BUN 19 Creatinine 1.24 Estim Creat Clear Calc 43 Estimated GFR 57 L Glucose 143 H Hemoglobin A1c 6.1 H Calcium 8.3 L Total Bilirubin AST ALT Alkaline Phosphatase Troponin I 23.500 H* D 53.300 H* D Total Protein Albumin Triglycerides 85 Cholesterol 179 LDL Cholesterol Direct 103 HDL Direct 45 Lipase Nasal MRSA (PCR)
--- NOTE | 2025-02-12 12:12 | PC.NURSE ---
Brilinta not covered by patient insurance. Cost is $65.00 and patient is able to cover this medication. Patient paid for medication via telephone and medication will be delivered.
--- NOTE | 2025-02-12 12:48 | PC.NURSE ---
Notified Dr. Pino that Brilinta will be paid for and that patient ambulated within the unit without any issues.
[2025-02-12] MEDS: METOPROLOL SUCCINATE EXT REL 25 MG TABCR PO (14:10)
--- NOTE | 2025-02-12 14:17 | PC.NURSE ---
Raya delivered. Gave to to take home.
[2025-02-12] MEDS: ATORVASTATIN 40 MG TABLET 80 MG PO (20:45)
[2025-02-13] VITALS (7 sets, daily range): BP systolic 107–116; BP diastolic 62–65; PULSE 57–65; RESP 22–25; TEMP 36.6–36.8; O2SAT 96–98
[2025-02-13] MEDS: METOPROLOL SUCCINATE EXT REL 25 MG TABCR PO (08:41)
[2025-02-13] MEDS: TICAGRELOR 90 MG TABLET PO (08:42)
[2025-02-13] MEDS: ASPIRIN 81 MG ENTERIC TABLET PO (08:42)
--- NOTE | 2025-02-13 11:03 | P.DS_ITS ---
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 daily and Brilinta 90 mg p.o. b.i.d. -continue atorvastatin 80 mg every evening -Echo reviewed, normal LV function with no valvular abnormalities -cardiac rehab -OK for discharge today Hyperlipidemia -atorvastatin 80 mg every evening for goal LDL less than 70 Active tobacco abuse -tobacco cessation counseling provided DS: Summary Hospital Course Hospital Course: 02/11/25: 75-year-old patient who is a smoker and started having chest pain today in the afternoon. Described as central chest pressure excessive shortness of breath. EKG shows inferior ST elevation. He was taken emergently to the cardiac labor relations director for angiogram and PCI. Underwent PCI/CHRIS x 1 to the mid RCA. He did not have any post-procedural complications and recovered as expected. Echo was performed and showed preserved LV function. Clinically stable and appropriate for discharge today. Time Spent with Patient Time attestation: Total time spent providing and/or coordinating discharge services: Exam Const: General: comfortable and well nourished Nutritional Appearance: well nourished Orientation/consciousness: patient oriented x3 HENMT: Head: normal to inspection, normocephalic and atraumatic Ears: hearing grossly normal bilaterally and external ears normal Face/Nose/Sinus: Normal external nose present, Normal nares present, normal facial exam and No erythema Face and sinus: normal facial exam and no erythema Mouth: Yes moist mucous membranes and No lip abnormal Throat: uvula midline Eyes: General: appearance normal, both eyes and all related structures Eyelids: eyelids normal Sclera: sclerae normal EOM: EOMs intact bilaterally Neck: Neck: normal visual inspection, full ROM and no JVD Thyroid: thyroid normal Carotids: no bruits Lymphatic: lymphedema not noted Chest: Chest palpation & inspection: normal inspection of the chest and normal palpation of entire chest wall Resp: Effort & Inspection: normal respiratory effort and not labored Auscultation: clear to auscultation bilaterally, no crackles, no rales and no wheezes Cardio: Jugular venous distension: no JVD Rate: regular rate Rhythm: regular rhythm Heart sounds: S1 normal heart sound present, S2 normal heart sound present, no click, no gallops, no murmurs and no rubs Bruits: no carotid bruits GI: Inspection: normal to inspection and non-distended Auscultation: normal bowel sounds Rectal Exam: deferred : General: No CVA tenderness and Yes no CVA tenderness Back/Spine/Pelvis: Back: no CVA tenderness, No CVA tenderness and No erythema Cervical Spine: cervical ROM normal Skin: General skin exam: normal color, no erythema and no pallor Lesions: no lesions Rashes: no rashes Neuro: General: patient oriented x3 and moves all extremities Cranial nerves: Yes facial symmetry Speech: normal speech and No Abnormal speech present Motor exam (neuro): 5/5 motor strength present throughout Extrem: General: normal to inspection and full ROM Other: Right groin site without hematoma or thrill. Psych: Appearance: grossly normal, well kempt and disheveled Affect: normal affect Discharge Plan Discharge Attending physician on discharge: Leonardo Pino Consulting providers: Paula Roper; Leonardo Pino; Erasmo Burton Discharging Clinician: Leonardo Pino Patient Disposition: Home Activity: other - see discharge instructions Diet: heart healthy Wound Care Instructions: keep dressing dry and other - see discharge instructions Discharge Instructions: [facility] [address] [place] [address] DISCHARGE INSTRUCTIONS - POST PCI Activity 1. No driving x 48 hours 2. No lifting, pushing or pulling more than 10 pounds for 1 week. 3. No strenuous exercise or activity (including sexual activity) until you are released to do so. 4. May shower but no tub baths or swimming pool for 1 week. Avoid commercial hot tubs. Medications DO NOT STOP YOUR MEDICATIONS ONLY YOUR ANALYTICS DIRECTOR CAN STOP THE FOLLOWING MEDICATIONS - PLEASE CALL THE OFFICE WITH QUESTIONS. *Aspirin *Ticagrelor (Brilinta) *Atorvastatin *Metoprolol Wound Care 1. Remove dressing 24 hours after your procedure prior to showering 2. Lather soap and water to puncture site and rinse then pat dry 3. You may apply a new band aid to the site and remove after 24 hours then leave open to air 4. Monitor daily for redness, drainage, mild swelling and fever Report IMMEDIATELY: CALL 911 1. If you experience any swelling or bleeding from puncture site. Hold firm pressure over the puncture site until help arrives 2. If you experience any new discomfort in you back, neck, jaw, stomach or arm. Any shortness of breath, nausea, vomiting, or cold sweats 3. If you experience any swelling, tenderness, or numbness in your leg or if your leg becomes cold or has color changes. Follow Up 1. Follow your doctors discharge instructions on resuming your medications. 2. Follow up with the office to schedule your next appointment with your doctor 3. Drink plenty of water following your procedure, avoid alcohol If you received a stent or a closure device keep your card with you such as in your wallet. Present your card to your doctor appointments to update your health care information. *For any other questions please call the office at [phone]. Office hours are 8AM 4:30PM Monday through Monday. Patient Instructions: Antibiotic Form, Metoprolol (By mouth), Aspirin (By mouth), Atorvastatin (By mouth), Ticagrelor (By mouth), Heart Attack (GEN), Heart Attack (IP), How to Stop Smoking (ED), Heart Healthy Diet (DC), Heart Healthy Diet (GEN), Acute Coronary Syndrome (GEN), Blood Thinners (GEN) Patient Language: Nicaraguan Stand Alone Forms: General Discharge Information, Work/School Release IP Follow-up/Referrals: Padmini Verdin MD [Physician, Cardiology] Discharge Medications: New aspirin 81 mg Tablet,Delayed Release (Dr/Ec) 81 mg PO QAM Qty: 90 0RF ticagrelor [Brilinta] 90 mg Tablet 90 mg PO Q12HR Qty: 180 0RF atorvastatin [Lipitor] 80 mg tablet 80 mg PO HS Qty: 90 0RF metoprolol succinate [Toprol XL] 25 mg Tablet Extended Release 24 Hr 25 mg PO QAM 90 Days Qty: 90 1RF Date of admission: 02/11/25 21:30 Primary Care Provider: Alexandra,Agustin Valencia Admitting Provider: Padmini Verdin Attending physician on admission: Hilda Kaminski Condition: Serious
== END 2025-02-13 11:46 | disposition home or self-care (01) | DRG 322 ==
LOC: ANHED 21:25 → ANHICU 21:32
PROVIDERS: Admitting Provider Internal Medicine Cardiovascular Disease; Emergency Provider Student in an Organized Health Care Education/Training Program; PCP Family Medicine; Visit Provider Nurse Practitioner
PROC: 4A023N7 Measurement of Cardiac Sampling and Pressure, Left Heart, Percutaneous Approach (ICD-10-PCS; CPT 93452; principal; 2025-02-11 21:45)
PROC: 027034Z Dilation of Coronary Artery, One Artery with Drug-eluting Intraluminal Device, Percutaneous Approach (ICD-10-PCS; CPT 92928; 2025-02-11 21:45)
PROC: 027034Z Dilation of Coronary Artery, One Artery with Drug-eluting Intraluminal Device, Percutaneous Approach (ICD-10-PCS; 2025-02-11 21:45)
DX: I21.19 ST elevation (STEMI) myocardial infarction involving other coronary artery of inferior wall (principal); N17.9 Acute kidney failure, unspecified; I25.10 Atherosclerotic heart disease of native coronary artery without angina pectoris; F17.210 Nicotine dependence, cigarettes, uncomplicated; R73.03 Prediabetes; I10 Essential (primary) hypertension; E86.1 Hypovolemia; E78.5 Hyperlipidemia, unspecified; Z90.49 Acquired absence of other specified parts of digestive tract; I95.9 Hypotension, unspecified
CPT/HCPCS: 36415; 71045; 80048; 80053; 80061; 83036; 83690; 84484; 85025; 85610; 85730; 87641; 92978; 93005; 93306; 93458; 96374; 99285; A9270; C1725; C1753; C1769; C1874; C1887; C1894; C9606; J0461; J0583; J1644; J2003; J2250; J3010; J7030; J7040; J7120